=== PATIENT | female | born 1935 | race Caucasian/White ===

== ENCOUNTER → 2018-08-20 | Outpatient (REF) | payer MEDICARE ==
[~2018-08-20] MED LIST: ALPR-445 PO; CALC500T42 PO; FISH OIL1 CAP PO; HYDR12.556 PO; MAGN27TA6 PO; MULT-977 PO; NAPR-1043 PO; VIT D; WARF5TAB23 PO; [UNRECOGNIZED DRUG - CODE] PO; [UNRECOGNIZED DRUG - OTHER]
[2018-08-20 14:47] LABS: INR 2.32
== END ==
LOC: ZZSENDIN 14:22
PROVIDERS: ATTEND Physician Assistant
DX: I63.00 Cerebral infarction due to thrombosis of unspecified precerebral artery (principal)
CPT/HCPCS: 85610

== ENCOUNTER → 2018-08-28 | Outpatient (CLI) | payer MEDICARE ==
--- NOTE | 2018-08-28 17:04 | RADIOLOGY IMAGING REPORT ---
FACILITY: [facility] PATIENT NAME: Julieta Vázquez : 1935 MR: [id number] V: [id number] EXAM DATE: ORDERING PHYSICIAN: HANY BARRIENTOS TECHNOLOGIST: Location: [facility] [place] Patient: Julieta Vázquez : 1935 Visit/Account:[id number] Date of Sevice: 08/28/2018 THORACIC SPINE 3 VIEWS INDICATION: Pain in the upper back after fall COMPARISON: None available FINDINGS: There is moderate height loss involving the T5 vertebral body measuring approximately 50%. This repr esents vertebral compression fracture of uncertain age. Mild marginal anterior osteophytes seen throughout the thoracic spine. IMPRESSION: 1. 50% height loss involving the T5 vertebral body of uncertain age. If clinically indicated recomm end MRI for further evaluation. 2. Mild degenerative changes as above. Results were discussed with HANY BARRIENTOS at 08/28/2018 4:59 PM. Report Dictated By: Anthony Buck at 08/28/2018 4:52 PM Report E-Signed By: Anthony Buck at 08/28/2018 4:59 PM WSN:[id number]
== END ==
LOC: RAD 15:58
PROVIDERS: ATTEND Physician Assistant
DX: M51.34 Other intervertebral disc degeneration, thoracic region (principal); M25.78 Osteophyte, vertebrae
CPT/HCPCS: 72072